=== PATIENT | male | born 1940 | race Caucasian/White ===

== ENCOUNTER 2020-06-10 15:47 | Inpatient (IN) | payer MEDICARE, OTHER ==
[~2020-06-10] VITALS: Ht 177.8 cm; Wt 87.1 kg
--- NOTE | 2020-06-10 16:00 | NUR ---
DR Stanford at the bedside for MSE.
[2020-06-10 16:33] LABS: BASOPHILS # (AUTO) 0.1 K/uL (0.0-8.0); BASOPHILS % (AUTO) 0.9 % (0.0-2.0); EOSINOPHILS # (AUTO) 0.2 K/uL (0.0-0.7); EOSINOPHILS % (AUTO) 2.5 % (0.0-7.0); HEMATOCRIT 39.6 % (36.7-47.1); LYMPHOCYTES # (AUTO) 1.9 K/uL (20.0-40.0); LYMPHOCYTES % (AUTO) 27.6 % (20.5-51.5); MEAN CORPUSCULAR HEMOGLOBIN 27.1 uug (23.8-33.4); MEAN CORPUSCULAR HGB CONC 33 g/dL (32.5-36.3); MEAN CORPUSCULAR VOLUME 82.4 fL (73.0-96.2); MONOCYTES % (AUTO) 14.7 % (0.0-11.0); NEUTROPHILS # (AUTO) 3.7 K/uL (1.8-8.9); NEUTROPHILS % (AUTO) 54.3 % (38.5-71.5); PLATELET COUNT (AUTO) 284 K/uL (152-348); WHITE BLOOD COUNT (AUTO) 6.8 K/uL (3.6-10.2)
[2020-06-10 16:37] LABS: CARBON DIOXIDE 25 mmol/L (21-32); CHLORIDE 99 mmol/L (98-107); CREATININE 1.4 mg/dL (0.6-1.3); GLUCOSE 113 mg/dL (74-106); POTASSIUM 4.7 mmol/L (3.5-5.1); UREA NITROGEN, BLOOD 24 mg/dL (7-18)
[2020-06-10 16:42] LABS: ALANINE AMINOTRANSFERASE 18 U/L (16-63); ALKALINE PHOSPHATASE 55 U/L (50-136); ASPARTATE AMINOTRANSFERASE 21 U/L (15-37); BILIRUBIN,DIRECT 0.5 mg/dL (0.0-0.2); BILIRUBIN,TOTAL 0.7 mg/dL (0.2-1.0); TOTAL PROTEIN, SERUM 7.3 g/dL (6.4-8.2)
--- NOTE | 2020-06-10 16:44 | NUR ---
Pt out of ER for CT.
--- NOTE | 2020-06-10 16:46 | NUR ---
PT'S SON TO BRING HOME MEDS THIS AFTERNOON, IS UNABLE TO COME.
[2020-06-10 16:50] LABS: THYROID STIMULATING HORMONE 1.782 mIU/mL (0.358-3.740)
--- NOTE | 2020-06-10 17:07 | NUR ---
Pt back from Ct, resting in bed. Pt son at the bedside.
[2020-06-10 17:33] LABS: *COLOR,URINE YELLOW (YELLOW); *KETONES,URINE NEGATIVE (NEGATIVE); LEUKOCYTE ESTERASE ,URINE 2+ (NEGATIVE); NITRITE, URINE NEGATIVE (NEGATIVE); PH,URINE 5.5 (5.0-8.0); UGLUCOSE NEGATIVE (NEGATIVE)
[2020-06-10 17:35] LABS: *BILIRUBIN,URIN 1+ (NEGATIVE); *BLOOD, URINE TRACE (NEGATIVE)
[2020-06-10 17:36] LABS: *CLARITY,URINE CLOUDY (CLEAR)
[2020-06-10] MEDS ORDERED: PANT40TA49 PO (17:49)
[2020-06-10] MEDS ORDERED: CLOP75TA15 PO (17:49)
[2020-06-10] MEDS ORDERED: GABA-536 PO (17:49)
[2020-06-10] MEDS ORDERED: CYAN-10 IM (17:49)
[2020-06-10] MEDS ORDERED: PRAV40TA3 PO (17:49)
[2020-06-10] MEDS ORDERED: TAMS-3 PO (17:49)
[2020-06-10] MEDS ORDERED: METF-441 PO (17:49)
[2020-06-10] MEDS ORDERED: LOSA25TA3 PO (17:49)
[2020-06-10] MEDS ORDERED: FURO-152 PO (17:49)
[2020-06-10] MEDS ORDERED: METO-357 PO (17:49)
[2020-06-10] MEDS ORDERED: TRAM50TA2 PO (17:49)
[2020-06-10] MEDS ORDERED: MAGN400T8 PO (17:49)
[2020-06-10] MEDS ORDERED: ONDA4TAB5 PO (17:49)
[2020-06-10] MEDS ORDERED: APIX5TAB PO (17:49)
--- NOTE | 2020-06-10 17:55 | NUR ---
KETTY Mota spoke to Dr Webster for tele admit.
--- NOTE | 2020-06-10 18:30 | NUR ---
RECEIVED PATIENT 80 YEARS OLD FEMALE FROM ED BY [facility] TO ROOM 308 WITH DX OF ALTERED MENTAL STATUS PLACED INTO BED FIXED AND MADE COMFORTABLE PATIENT IS ALERT TO SELF DOES NOT KNOW WHERE HE IS BUT WANTS TO GO HOME REFUSED TO HAVE HIS CLOTHES REMOVED BUT AGREED TO HVE HIS TELEMETRY PLACED AND HE IS SINUS AT 64.MADE COMFORTABLE ORIENTED TO ROOM AND FACILITY PROTOCOL WILL ENDORSE THE REST OF THE ADMISSION TO ON COMING SHIFT.
[2020-06-10 18:32] LABS: BACTERIA,URINE MODERATE /HPF (NONE SEEN); SQUAMOUS EPITHELIAL CELL,UR FEW /HPF (NONE SEEN)
[2020-06-10 18:43] VITALS: BP 115/61
[2020-06-10] MEDS ORDERED: IV NS 1000 ML 1,000 ML IV PRN (18:45)
[2020-06-10] MEDS ORDERED: ACETAMINOPHEN 325 MG TABLET PO PRN (18:45)
[2020-06-10] MEDS ORDERED: Z GUARD REMEDY PASTE 57 GM TUBE TOP PRN (18:45)
[2020-06-10] MEDS ORDERED: ONDANSETRON HCL 4 MG TABLET PO SCH (18:45)
[2020-06-10] MEDS ORDERED: ONDANSETRON 4 MG/2 ML VIAL IV PRN (18:45)
[2020-06-10] MEDS ORDERED: MAGNESIUM HYDROXIDE 30 ML LIQUID UDC PO PRN (18:45)
[2020-06-10] MEDS ORDERED: INSULIN REGULAR, HUMAN 300 UNIT/3 ML VIAL SQ PRN (19:00)
[2020-06-10] MEDS ORDERED: DEXTROSE 50% 50 ML DISP.SYRIN IV PRN (19:00)
--- NOTE | 2020-06-10 19:00 | NUR ---
Received patient from AM nurse. VSS. Patient comfortable in bed. No reports of pain or discomfort. Afebrile. Bed at lowest position, bed alarm on, call light within reach, introduced myself to patient. Will continue to monitor and assess.
[2020-06-10] MEDS: CEFTRIAXONE 1 G in IV DEXTROSE 5% 50 ML IV SCH (20:08)
[2020-06-10] MEDS: APIXABAN 5 MG TABLET PO SCH (20:11)
[2020-06-10 20:45] VITALS: BP 150/51
[2020-06-10] MEDS ORDERED: ENOXAPARIN SODIUM 40 MG/0.4 ML DISP.SYRIN SQ SCH (21:00)
[2020-06-10] MEDS: BLOOD SUGAR DIAGNOSTIC 1 EACH STRIP VI SCH (21:34)
[2020-06-10] MEDS: ATORVASTATIN 10 MG TABLET PO SCH (21:38)
--- NOTE | 2020-06-10 23:00 | NUR ---
Pt changed, linens changed fully, wounds cared for and dressings changed. Will continue to monitor and assess.
[2020-06-10] MEDS: TRAMADOL HCL 50 MG TABLET PO PRN (23:34)
--- NOTE | 2020-06-10 23:34 | NUR ---
Pt was reporting pain. PRN Tramadol was given. Will continue to monitor and assess.
[2020-06-11] VITALS: BP 140/54
[2020-06-11] MEDS ORDERED: MELATONIN 3 MG TABLET ONE (02:28)
[2020-06-11] MEDS: MELATONIN 3 MG TABLET PO SCH ×2 (02:28→21:00)
--- NOTE | 2020-06-11 02:30 | NUR ---
Upon entering the patients room, the patient mentioned that he is having a hard time going to sleep and would like something to help. I contacted Dr. Del Angel and requested Melatonin, he agreed and ordered 6mg PO QHS for it. Will continue to monitor and assess patient.
[2020-06-11 04:00] VITALS: BP 120/44
--- NOTE | 2020-06-11 05:25 | NUR ---
Pt asleep in bed. Was awake for a majority of the night, slightly confused. The Melatonin seemed to have a positive effect because it did help the patient eventually fall asleep. VSS. No report/signs of pain, bed at lowest position, call light within reach, HOB elevated, no SOB, afebrile. Will endorse to oncoming nurse.
[2020-06-11] MEDS: BLOOD SUGAR DIAGNOSTIC 1 EACH STRIP VI SCH ×4 (06:36→21:31)
[2020-06-11 06:58] LABS: CARBON DIOXIDE 28 mmol/L (21-32); CHLORIDE 100 mmol/L (98-107); CHOLESTEROL 100 mg/dL (<200); CREATININE 1.4 mg/dL (0.6-1.3); GLUCOSE 103 mg/dL (74-106); HDL CHOLESTEROL 22 mg/dL (40-60); MAGNESIUM 1.8 mg/dL (1.8-2.4); PHOSPHOROUS 2.8 mg/dL (2.5-4.9); POTASSIUM 4.5 mmol/L (3.5-5.1); TRIGLYCERIDES 151 MG/DL (30-150); UREA NITROGEN, BLOOD 28 mg/dL (7-18)
[2020-06-11] MEDS ORDERED: PANTOPRAZOLE SODIUM 40 MG TABLET.DR PO SCH (07:00)
[2020-06-11 07:08] LABS: BASOPHILS % (AUTO) 0.7 % (0.0-2.0); EOSINOPHILS # (AUTO) 0.2 K/uL (0.0-0.7); HEMATOCRIT 39.1 % (36.7-47.1); HEMOGLOBIN 13.1 g/dL (12.5-16.3); LYMPHOCYTES # (AUTO) 2.2 K/uL (20.0-40.0); LYMPHOCYTES % (AUTO) 33.1 % (20.5-51.5); MEAN CORPUSCULAR HEMOGLOBIN 27.7 uug (23.8-33.4); MEAN CORPUSCULAR HGB CONC 33 g/dL (32.5-36.3); MONOCYTES % (AUTO) 15.7 % (0.0-11.0); NEUTROPHILS # (AUTO) 3.1 K/uL (1.8-8.9); NEUTROPHILS % (AUTO) 47.5 % (38.5-71.5); PLATELET COUNT (AUTO) 284 K/uL (152-348); RED BLOOD CELL COUNT(AUTO) 4.72 MIL/uL (4.06-5.63); WHITE BLOOD COUNT (AUTO) 6.6 K/uL (3.6-10.2)
[2020-06-11 07:12] LABS: THYROID STIMULATING HORMONE 2.742 mIU/mL (0.358-3.740)
[2020-06-11] MEDS: TAMSULOSIN HCL 0.4 MG CAP.SR.24H PO SCH (08:31)
[2020-06-11] MEDS: METFORMIN HCL 850 MG TABLET PO SCH ×2 (08:31→17:23)
[2020-06-11] MEDS: FUROSEMIDE 20 MG TABLET PO SCH ×2 (08:32→17:21)
[2020-06-11] MEDS: PANTOPRAZOLE SODIUM 40 MG TABLET.DR PO SCH ×2 (08:33→17:20)
[2020-06-11] MEDS: TRAMADOL HCL 50 MG TABLET PO PRN ×2 (08:33→22:10)
[2020-06-11] MEDS: CLOPIDOGREL 75 MG TABLET PO SCH (08:33)
[2020-06-11] MEDS: APIXABAN 5 MG TABLET PO SCH ×2 (08:35→21:00)
[2020-06-11] MEDS: LOSARTAN POTASSIUM 25 MG TABLET PO SCH ×2 (08:36→17:21)
[2020-06-11] MEDS: METOPROLOL SUCCINATE XL 50 MG TAB.SR.24H PO SCH (08:36)
[2020-06-11] MEDS: MAGNESIUM OXIDE 400 MG TABLET PO SCH (08:37)
[2020-06-11] MEDS ORDERED: GABAPENTIN 400 MG CAPSULE PO SCH (09:00)
--- NOTE | 2020-06-11 09:15 | NUR ---
PATIENT SEEN BY STACY WITH ORDER FOR MRI TODAY PATIENT REMAINS CONFUSED AND DISORIENTED BUT IS ALERT TO NAME ONLY UNAWARE OF DESTINATION
--- NOTE | 2020-06-11 09:34 | NUR ---
TEXTED FOR MRI APPROVAL.
--- NOTE | 2020-06-11 10:00 | NUR ---
CALL RECEIVED FROM [facility] STATED TO SEND PATIENT TO [facility] AMBULANCE IS READY FOR MRI OF THE BRAIN ORDERED.[facility] CALLED BY THE COLUMNIST/COMMENTATOR AND SCHEDULED A E COMMERCE MANAGER AT [id number]
--- NOTE | 2020-06-11 10:30 | NUR ---
PATIENTS SON YUMIKO CALLED RE TO ASSIST WITH THE MRI QUESTIONARE STATED FOR ME TO CALL MYESHA WHO IS PATIENT PRIVATE NURSE SO HE PROVIDED ME WITH [facility] PHONE NUMBER [phone].
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
--- NOTE | 2020-06-11 11:10 | NUR ---
THE AMBULANCE IS HERE TO APPLICATION PENETRATION TESTER PATIENT CALLED DR MANZO SPOKE WITH HIM AND HE STATED WILL CALL BACK IN A FEW MINUTES NEEDED TO TALK TO THE RADIOLOGIST TO SEE THE POSSIBILITY.
--- NOTE | 2020-06-11 11:15 | NUR ---
DR MANZO CALLED BACK AND STATED TO CANCEL THE MRI IT WILL BE UNSAFE FOR PATIENT BECAUSE OF THE METAL PAGE IN HIS HEAD. AMBULANCE CANCELLED AND BRETT NOTIFIED THAT DR STUART STATED IT WAS UNSAFE.
[2020-06-11 11:30] VITALS: BP 136/54
[2020-06-11 12:00] LABS: *BILIRUBIN,URIN NEGATIVE (NEGATIVE); *CLARITY,URINE SLIGHTLY CLOUDY (CLEAR); *COLOR,URINE YELLOW (YELLOW); *KETONES,URINE TRACE (NEGATIVE); LEUKOCYTE ESTERASE ,URINE 2+ (NEGATIVE); NITRITE, URINE POSITIVE (NEGATIVE); UGLUCOSE NEGATIVE (NEGATIVE)
[2020-06-11 12:01] LABS: *BLOOD, URINE TRACE (NEGATIVE)
--- NOTE | 2020-06-11 12:44 | NUR ---
WOUND CARE CONSULT: PT REFUSED SKIN ASSESSMENT AND REFUSED TO HAVE RT LOWER EXTREMITY DRESSING REMOVED. DRESSING IS DRY AND INTACT. REVIEWED CHART, NURSING DOCUMENTATION AND PHOTOS WHICH INDICATE LOWER EXTREMITY WOUNDS TO RT LOWER EXTREMITY, DRY ABRASIONS TO LEFT LOWER LEG AND RASH TO GROIN/PERINEAL AREAS, PRESENT ON ADMISSION. RECOMMEND DPM CONSULT. DR RICKS NOTIFIED OF CONSULT REQUEST. RECOMMENDATIONS MADE FOR SKIN PROTECTION. DISCUSSED WITH NURSING STAFF. PT IS COMBATIVE AND UNCOOPERATIVE AT TIMES. MD IN AGREEMENT WITH PLAN OF CARE.
[2020-06-11 13:01] LABS: *CREATININE,URINE 146.2 mg/dL (30-125); *URINE TOTAL PROTEIN RANDOM 25.5 mg/dL (<150/24HR)
--- NOTE | 2020-06-11 13:27 | NUR ---
CLINICAL PRACTITIONER HERE TO DO ULTRA SOUND OF THE KIDNEYS ORDERED BUT PATIENT REFUSED DESPITE ALL EXPLAINATIONS.
--- NOTE | 2020-06-11 14:01 | NUR ---
PATIENT IS VERY CONFUSED LOOKING FOR RAMONE REMOVED HIS TELEMETRY AND HIS GOWN REFUSED TO HAVE THEN REAPPLIED MADE COMFORTABLE WILL CONTINUE TO OBSERVE.
[2020-06-11 15:09] LABS: BACTERIA,URINE MANY /HPF (NONE SEEN); SQUAMOUS EPITHELIAL CELL,UR FEW /HPF (NONE SEEN); WBC,URINE 20-50 /HPF (0-3)
--- NOTE | 2020-06-11 15:16 | NUR ---
AWAKE ALERT TO SELF ALLOWED ME TO REAPPLY HIS TELEMETRY LEADS AND BOX OFFERED PAIN MEDICATION PATIENT SEEMED TO BE GRIMACING BUT HE DECLINED AND STATED VERY LOUDLY NO MEDICINE.MADE COMFORTABLE IN BED WILL CONTINUE TO OBSERVE.
[2020-06-11 15:20] LABS: EOSINOPHILS % (MANUAL) 1 % (0-8); LYMPHOCYTES % (MANUAL) 36 % (20-40); MONOCYTES % (MANUAL) 14 % (2-10); NEUTROPHILS % (MANUAL) 49 % (42-75)
[2020-06-11 16:00] VITALS: BP 139/58
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
[2020-06-11] MEDS: CLOTRIMAZOLE 1% CREAM 30 GM TUBE TOP SCH (17:24)
--- NOTE | 2020-06-11 17:30 | NUR ---
PATIENT HAS POOR APPETITE REFUSING TO EAT OR BE FED HE ONLY ATE THE FRUITS ON HIS TRAY WITH SOME JUICE ENCOURAGED AND ATTEMPTED TO ASSIST TO NO AVAIL.WAVES HIS ARM IN THE AIR NO SAYING NO NO MAX ASSIST FOR ALL ADL MADE COMFORTABLE WILL CONTINUE TO OBSERVE
--- NOTE | 2020-06-11 20:00 | NUR ---
Patient in bed resting, alert to self. Does not have s/s of respiratory distress. Bed is locked and in lowest position with bed alarm on. Will continue to monitor.
[2020-06-11 20:03] VITALS: BP 140/54
[2020-06-11] MEDS: CEFTRIAXONE 1 G in IV DEXTROSE 5% 50 ML IV SCH (20:11)
[2020-06-11] MEDS: ATORVASTATIN 10 MG TABLET PO SCH (21:00)
--- NOTE | 2020-06-11 22:00 | NUR ---
Multiple attempts made to give patient scheduled meds. Patient refused and waving hands around and spitting them out.
[2020-06-12 00:10] VITALS: BP 144/69
[2020-06-12 04:00] VITALS: BP 150/68
--- NOTE | 2020-06-12 06:04 | NUR ---
Patient slept intermittently throughout the night. No complaints of chest pain, respiratory distress or any discomfort at this time. Tele monitor SR with 86 pulse. Bed alarm is on. Bed is locked and in the lowest position. Patient has been repositioned for comfort. Will endorse to day shift.
[2020-06-12] MEDS: BLOOD SUGAR DIAGNOSTIC 1 EACH STRIP VI SCH ×4 (06:49→22:28)
[2020-06-12 07:04] LABS: BASOPHILS # (AUTO) 0.1 K/uL (0.0-8.0); BASOPHILS % (AUTO) 1.4 % (0.0-2.0); EOSINOPHILS # (AUTO) 0.2 K/uL (0.0-0.7); EOSINOPHILS % (AUTO) 3.4 % (0.0-7.0); HEMATOCRIT 39.8 % (36.7-47.1); HEMOGLOBIN 13.3 g/dL (12.5-16.3); LYMPHOCYTES # (AUTO) 2.1 K/uL (20.0-40.0); LYMPHOCYTES % (AUTO) 32.7 % (20.5-51.5); MEAN CORPUSCULAR HEMOGLOBIN 27.7 uug (23.8-33.4); MEAN CORPUSCULAR HGB CONC 33 g/dL (32.5-36.3); MEAN CORPUSCULAR VOLUME 83.2 fL (73.0-96.2); MONOCYTES # (AUTO) 1.1 K/uL (2.0-10.0); MONOCYTES % (AUTO) 16.9 % (0.0-11.0); NEUTROPHILS # (AUTO) 2.9 K/uL (1.8-8.9); NEUTROPHILS % (AUTO) 45.6 % (38.5-71.5); PLATELET COUNT (AUTO) 277 K/uL (152-348); RED BLOOD CELL COUNT(AUTO) 4.78 MIL/uL (4.06-5.63); WHITE BLOOD COUNT (AUTO) 6.3 K/uL (3.6-10.2)
[2020-06-12 07:27] LABS: BILIRUBIN,TOTAL 0.7 mg/dL (0.2-1.0); CREATININE 1.1 mg/dL (0.6-1.3); MAGNESIUM 1.8 mg/dL (1.8-2.4); PHOSPHOROUS 2.9 mg/dL (2.5-4.9); POTASSIUM 4.9 mmol/L (3.5-5.1); TOTAL PROTEIN, SERUM 7.2 g/dL (6.4-8.2)
[2020-06-12] MEDS: PANTOPRAZOLE SODIUM 40 MG TABLET.DR PO SCH ×2 (09:00→18:18)
[2020-06-12] MEDS: TAMSULOSIN HCL 0.4 MG CAP.SR.24H PO SCH (09:00)
[2020-06-12] MEDS: FUROSEMIDE 20 MG TABLET PO SCH ×2 (09:00→18:18)
[2020-06-12] MEDS: METOPROLOL SUCCINATE XL 50 MG TAB.SR.24H PO SCH (09:00)
[2020-06-12] MEDS: CLOPIDOGREL 75 MG TABLET PO SCH (09:00)
[2020-06-12] MEDS: METFORMIN HCL 850 MG TABLET PO SCH ×3 (09:00→18:19)
[2020-06-12] MEDS: LOSARTAN POTASSIUM 25 MG TABLET PO SCH ×2 (09:00→18:22)
[2020-06-12] MEDS: MAGNESIUM OXIDE 400 MG TABLET PO SCH (09:00)
[2020-06-12] MEDS: APIXABAN 5 MG TABLET PO SCH ×2 (09:00→22:08)
--- NOTE | 2020-06-12 09:30 | NUR ---
Patient is refusing to take medication, he is non compliant and combative. He also is complaining about being cold. Took patient's temperature 98.3. Patient has been given multiple blanket from the blanket warmer. He has a total of 6 on his bed. Patient is confused. Will continue to monitor.
[2020-06-12] MEDS: CLOTRIMAZOLE 1% CREAM 30 GM TUBE TOP SCH ×2 (09:59→17:00)
[2020-06-12 11:32] VITALS: BP 125/69
--- NOTE | 2020-06-12 13:00 | NUR ---
Did bladder scan on Patient he has a volume of 356. Will make Dr William aware. Will continue to monitor.
[2020-06-12 13:41] LABS: BAND % (MANUAL) 1 % (0-10); LYMPHOCYTES % (MANUAL) 31 % (20-40)
[2020-06-12 13:42] LABS: BASOPHILS % (MANUAL) 0 % (0-2); EOSINOPHILS % (MANUAL) 3 % (0-8); MONOCYTES % (MANUAL) 15 % (2-10); NEUTROPHILS % (MANUAL) 50 % (42-75)
[2020-06-12] MEDS: TRAMADOL HCL 50 MG TABLET PO PRN (15:26)
[2020-06-12 16:00] VITALS: BP 135/65
[2020-06-12] MEDS ORDERED: QUETIAPINE FUMARATE 25 MG TABLET PO ONE ×2 (18:07→21:00)
--- NOTE | 2020-06-12 18:08 | NUR ---
Dr Castellanos called for order of Seroquel 12.5 Now. Read back completed and order placed. Will continue to monitor.
--- NOTE | 2020-06-12 18:30 | NUR ---
Patient is now resting in bed. No sign of distress noted at this time. Wound are are cleaned and dressed. Safety precautions are in place with bed in the lowest position, locked with alarm activated. Call light and belongings are within reach. Will endorse to the oncoming nurse.
--- NOTE | 2020-06-12 19:45 | NUR ---
PATIENT ALERT BUT WITH CONFUSION, NO SOB NO CHEST PAIN, TELE MONITOR SINUS RHYTHM AT THIS TIME. PATIENT HAS EPISODE OF NON COMPLIANT WITH PO MEDICATION, REFUSED MEDICATION, AND SPIT OUT. PATIENT THROW PILLOW AND BLANKETS ON THE FLOOR, REDIRECT BEHAVIOR BUT NOT EFFECTIVE. PATIENT WAS KEPT CLEAN AND DRY, CONT TO MONITOR.
[2020-06-12] MEDS: CEFTRIAXONE 1 G in IV DEXTROSE 5% 50 ML IV SCH (20:46)
[2020-06-12 20:58] VITALS: BP 133/70
[2020-06-12] MEDS: ATORVASTATIN 10 MG TABLET PO SCH (22:05)
[2020-06-12] MEDS: MELATONIN 3 MG TABLET PO SCH (22:06)
[2020-06-12] MEDS: QUETIAPINE FUMARATE 25 MG TABLET PO SCH (22:06)
[2020-06-13 00:56] VITALS: BP 136/61
[2020-06-13 04:53] VITALS: BP 132/68
[2020-06-13] MEDS: BLOOD SUGAR DIAGNOSTIC 1 EACH STRIP VI SCH ×4 (06:43→20:48)
--- NOTE | 2020-06-13 06:46 | NUR ---
PATIENT AWAKE WITH CONFUSION, NO S/S OF SOB NO S/S OF CHEST PAIN. PATIENT TELE MONITOR SINUS CARNE SINUS RHYTHM, KEPT CLEAN AND DRY, PATIENT TOOK ALL PO MEDS AT THIS TIME. PATIENT HAS COMPLAIN OF SLIGHT PAIN ON R LEG, ELEVATED WITH PILLOW, CONT TO MONITOR.
--- NOTE | 2020-06-13 07:30 | NUR ---
Received patient resting in bed. Patient was better about taking his medications today. Patient seems to be ore oriented today . He also is complaining about pain, Will check eMAR to see what is available. . Patient has been given blanket from the blanket warmer. Safety precaution are in place with call light and belongings within reach. Will continue to monitor
[2020-06-13] MEDS: FUROSEMIDE 20 MG TABLET PO SCH (09:28)
[2020-06-13] MEDS: CLOPIDOGREL 75 MG TABLET PO SCH (09:28)
[2020-06-13] MEDS: PANTOPRAZOLE SODIUM 40 MG TABLET.DR PO SCH ×2 (09:29→17:39)
[2020-06-13] MEDS: TAMSULOSIN HCL 0.4 MG CAP.SR.24H PO SCH (09:29)
[2020-06-13] MEDS: METFORMIN HCL 850 MG TABLET PO SCH ×2 (09:29→17:39)
[2020-06-13] MEDS: CLOTRIMAZOLE 1% CREAM 30 GM TUBE TOP SCH ×2 (09:30→17:41)
[2020-06-13] MEDS: MAGNESIUM OXIDE 400 MG TABLET PO SCH (09:30)
[2020-06-13] MEDS: METOPROLOL SUCCINATE XL 50 MG TAB.SR.24H PO SCH (09:33)
[2020-06-13] MEDS: LOSARTAN POTASSIUM 25 MG TABLET PO SCH ×2 (09:33→17:00)
[2020-06-13] MEDS: APIXABAN 5 MG TABLET PO SCH ×2 (09:46→20:18)
[2020-06-13] MEDS: TRAMADOL HCL 50 MG TABLET PO PRN (11:33)
[2020-06-13 11:34] VITALS: BP 158/50
--- NOTE | 2020-06-13 11:40 | NUR ---
Was told by MID WIFE that when she was changing patient he spat out chewed medication. This was after administering Ultram to the patient at 1133. Will continue to monitor.
[2020-06-13] MEDS ORDERED: HYDROCODONE/APAP 5-325MG TABLET PO PRN (13:30)
[2020-06-13 15:57] VITALS: BP 110/55
[2020-06-13 17:33] LABS: A/G RATIO 0.7 (0.7-1.7); ALBUMIN 2.6 g/dL (2.9-4.4); ALPHA-1-GLOBULIN 0.3 g/dL (0.0-0.4); BETA GLOBULIN 1.2 g/dL (0.7-1.3); GAMMA GLOBULIN 1.1 g/dL (0.4-1.8); GLOBULIN, TOTAL 3.6 g/dL (2.2-3.9); M-SPIKE Not Observed g/dL (Not Observed)
--- NOTE | 2020-06-13 18:56 | NUR ---
Patient is now resting in bed. No sign of distress noted at this time. Gave medications as ordered. Comfort measure implemented. Safety measures are in place with call light and belongings within reach. Will endorse to the oncoming nurse.
[2020-06-13] MEDS: CEFTRIAXONE 1 G in IV DEXTROSE 5% 50 ML IV SCH (20:00)
[2020-06-13 20:04] VITALS: BP 107/56
[2020-06-13] MEDS: ATORVASTATIN 10 MG TABLET PO SCH (20:17)
[2020-06-13] MEDS: QUETIAPINE FUMARATE 25 MG TABLET PO SCH (20:17)
[2020-06-13] MEDS: MELATONIN 3 MG TABLET PO SCH (20:17)
[2020-06-13] MEDS ORDERED: LOSA25TA27 PO (21:58)
[2020-06-13] MEDS ORDERED: QUET25TA PO (21:58)
[2020-06-13] MEDS ORDERED: CYAN-10 IM (21:58)
[2020-06-13] MEDS ORDERED: HYDR-4384 PO (21:58)
[2020-06-13] MEDS ORDERED: CEFT1VIA15 IV (21:58)
[2020-06-13] MEDS ORDERED: CLOT15CR27 TP (21:58)
[2020-06-13] MEDS ORDERED: ATOR10TA PO (21:58)
[2020-06-13] MEDS ORDERED: MELA3TAB41 PO (21:58)
[2020-06-13] MEDS ORDERED: ACET-2154 PO (22:02)
[2020-06-14] MEDS ORDERED: FUROSEMIDE 20 MG TABLET PO SCH (09:00)
[2020-07-10] MEDS ORDERED: CYANOCOBALAMIN 1000 MCG/ML VIAL IM SCH (09:00)
== END 2020-06-13 21:29 | DRG 682 ==
LOC: ER 15:47 → TELE3 17:57
PROVIDERS: ADMIT Registered Nurse; ATTEND Nurse Practitioner Acute Care
DX: N17.0 Acute kidney failure with tubular necrosis (principal); G92 Toxic encephalopathy; N39.0 Urinary tract infection, site not specified; E44.0 Moderate protein-calorie malnutrition; I50.32 Chronic diastolic (congestive) heart failure; Z79.01 Long term (current) use of anticoagulants; L97.519 Non-pressure chronic ulcer of other part of right foot with unspecified severity; E11.621 Type 2 diabetes mellitus with foot ulcer; Z79.4 Long term (current) use of insulin; E11.51 Type 2 diabetes mellitus with diabetic peripheral angiopathy without gangrene; F03.90 Unspecified dementia, unspecified severity, without behavioral disturbance, psychotic disturbance, mood disturbance, and anxiety; I11.0 Hypertensive heart disease with heart failure; I25.10 Atherosclerotic heart disease of native coronary artery without angina pectoris; K21.9 Gastro-esophageal reflux disease without esophagitis; Z87.891 Personal history of nicotine dependence; Z95.2 Presence of prosthetic heart valve; E88.09 Other disorders of plasma-protein metabolism, not elsewhere classified; Z68.27 Body mass index [BMI] 27.0-27.9, adult; S90.511A Abrasion, right ankle, initial encounter; S80.211A Abrasion, right knee, initial encounter; X58.XXXA Exposure to other specified factors, initial encounter; Y93.9 Activity, unspecified; Y92.009 Unspecified place in unspecified non-institutional (private) residence as the place of occurrence of the external cause; I45.10 Unspecified right bundle-branch block; B96.20 Unspecified Escherichia coli [E. coli] as the cause of diseases classified elsewhere; Z73.6 Limitation of activities due to disability; E11.42 Type 2 diabetes mellitus with diabetic polyneuropathy; I48.91 Unspecified atrial fibrillation; R90.82 White matter disease, unspecified
CPT/HCPCS: 36415; 70030-TC; 70450; 71045; 83605; 83735; 83970; 84100; 84155; 84156; 84165; 84300; 84443; 85025; 85730; 87040; 87077; 87086; 93005; 93307; A4663; G0378; J0696; J1815; J7030; J7050; J7060